=== PATIENT | female | born 2000 | race Hispanic/Latino ===

== ENCOUNTER 2021-11-15 16:49 | Emergency (ER) | payer OTHER ==
[~2021-11-15] VITALS: Ht 149.9 cm; Wt 52.7 kg
[~2021-11-15 16:49] MED LIST: NO HOME MEDS; TAMIFLU12 MG/ML OR; TRIAMIN OR; ZOFRAN ODT4 MG OR
[2021-11-15 17:59] LABS: HEMATOCRIT 42.9 % (37.0-47.0); HEMOGLOBIN 13.6 g/dl (12.0-16.0); IMMATURE GRANULOCYTES 0.2 % (0.0-5.0); MEAN CORPUSCULAR HGB CONC 31.7 g/dL CAL (32.0-36.0); NEUT# 12.14 thou/uL (2.00-7.15); RED BLOOD COUNT 5.23 mill/uL (4.20-5.60); RED CELL DISTRI WIDTH 15.2 % (11.5-15.5)
[2021-11-15 18:13] LABS: ALBUMIN 4.5 g/dL (3.2-5.0); ANION GAP 16 (6-22 (CALC)); BUN 11 mg/dL (7-17); BUN/CREATININE RATIO 18 (12-20 (CALC)); CARBON DIOXIDE 26 mmol/l (22-30); CHLORIDE 102 mmol/l (95-108); CREATININE 0.6 mg/dL (0.5-1.0); GFR > 60 ML/MIN (>=60 (CALC)); GFR FOR AFR.AMER. > 60 ML/MIN (>=60 (CALC)); LIPASE 36 u/l (23-300); MAGNESIUM 1.7 mg/dL (1.6-2.3); POTASSIUM 3.9 mmol/l (3.5-5.1); SGOT/AST 20 u/l (14-36); SODIUM 139 mmol/l (137-146); TOTAL PROTEIN 8.1 g/dL (6.3-8.2)
[2021-11-15 18:14] LABS: ALKALINE PHOSPHATASE 85 u/l (38-126); BILIRUBIN, TOTAL 0.8 mg/dL (0.0-1.4)
[2021-11-15 18:31] LABS: BETA-HCG, QUANT(RESULT NUMBER) 160 mIU/mL
[2021-11-15 18:44] LABS: TSH, 3RD GENERATION 0.61 uIU/mL (0.47 - 4.68)
[2021-11-15 19:10] LABS: URINE BILIRUBIN - DIPSTICK NEGATIVE (NEGATIVE); URINE BLOOD DIPSTICK NEGATIVE (NEGATIVE); URINE COLOR YELLOW; URINE GLUCOSE - DIPSTICK NEGATIVE (NEGATIVE); URINE KETONE >=80 mg/dL (NEGATIVE); URINE LEUK ESTERASE NEGATIVE (NEGATIVE); URINE PROTEIN - DIPSTICK TRACE mg/dL (NEG-TRACE); URINE SPECIFIC GRAVITY >=1.030; URINE UROBILINOGEN - DIPSTICK 0.2 E.U./dL (0.2)
[2021-11-15 19:12] LABS: URINE NITRITE - DIPSTICK NEGATIVE (Negative)
[2021-11-15] MEDS ORDERED: ZOFRAN4 MG/TAB PO (20:51)
[2021-11-15 21:10] VITALS: BP 100/60
== END 2021-11-15 21:15 | disposition home or self-care (01) | DRG 392 ==
LOC: ED 16:49
PROVIDERS: Emergency Medicine
DX: K52.9 Noninfective gastroenteritis and colitis, unspecified (principal); R79.89 Other specified abnormal findings of blood chemistry; Z20.822 Contact with and (suspected) exposure to COVID-19

== ENCOUNTER 2023-11-13 18:53 | Emergency (ER) | payer SELFPAY ==
[~2023-11-13] VITALS: Ht 149.9 cm; Wt 61.2 kg
[2023-11-13] VITALS (23 sets, daily range): BP systolic 82–147; BP diastolic 42–93
[~2023-11-13 18:53] MED LIST changes: +ZOFRAN4 MG/TAB PO
[2023-11-13] MEDS ORDERED: CHOLESTYRAMINE4 G1 PO (19:06)
[2023-11-13 19:48] LABS: BASO% 0.3 % (0-3); EOS% 0.7 % (0-8); HEMATOCRIT 42.7 % (37.0-47.0); HEMOGLOBIN 13.4 g/dl (12.0-16.0); IMMATURE GRANULOCYTES 0.3 % (0.0-5.0); LYMPH% 15.3 % (15-41); MEAN CELL VOLUME 81.5 fL CALC (80.0-100.0); MEAN CORPUSCULAR HGB 25.6 pG CALC (26.0-32.0); MEAN CORPUSCULAR HGB CONC 31.4 g/dL CAL (32.0-36.0); MONO% 5.7 % (2-13); NEUT# 9.5 thou/uL (2.00-7.15); NEUT% 77.7 % (42-76); RED BLOOD COUNT 5.24 mill/uL (4.20-5.60); RED CELL DISTRI WIDTH 14.1 % (11.5-15.5)
[2023-11-13 19:51] LABS: URINE BILIRUBIN - DIPSTICK Negative (NEGATIVE); URINE BLOOD DIPSTICK Trace-intact (NEGATIVE); URINE GLUCOSE - DIPSTICK Negative (NEGATIVE); URINE KETONE 80 mg/dL (NEGATIVE); URINE LEUK ESTERASE Trace (NEGATIVE); URINE NITRITE - DIPSTICK Negative (Negative); URINE PH 5.5 (4.5-8.0); URINE PROTEIN - DIPSTICK 100 mg/dL (NEG-TRACE); URINE SPECIFIC GRAVITY >=1.030; URINE UROBILINOGEN - DIPSTICK 0.2 E.U./dL (0.2)
[2023-11-13 19:52] LABS: ALBUMIN 5.2 g/dL (3.2-5.0); ALKALINE PHOSPHATASE 88 u/l (38-126); ANION GAP 20 (6-22 (CALC)); BILIRUBIN, TOTAL 0.6 mg/dL (0.02-1.3); BUN 8 mg/dL (7-17); BUN/CREATININE RATIO 15 (12-20 (CALC)); CARBON DIOXIDE 23 mmol/l (22-30); CHLORIDE 100 mmol/l (95-108); CREATININE 0.5 mg/dL (0.5-1.0); GFR FOR AFR.AMER. > 60 ML/MIN (>=60 (CALC)); GFR OTHER RACES > 60 ML/MIN (>=60 (CALC)); LIPASE 68 u/l (23-300); POTASSIUM 3.8 mmol/l (3.5-5.1); SODIUM 140 mmol/l (137-146); TOTAL PROTEIN 9.3 g/dL (6.3-8.2); URINE COLOR Yellow
[2023-11-13 19:53] LABS: SGOT/AST 57 u/l (14-36)
[2023-11-13 19:59] LABS: URINE SQUAMOUS EPITHELIAL CELL MANY EPI/hpf (0-FEW)
[2023-11-14] MEDS ORDERED: ZOFRAN4 MG/TAB PO (02:07)
[2023-11-14] MEDS ORDERED: DICYCLOMINE HCL20 MG PO (02:07)
[2023-11-14 02:12] VITALS: BP 88/50
[2023-11-14 02:15] VITALS: BP 94/55
[2023-11-14 02:33] VITALS: BP 94/55
== END 2023-11-14 02:37 | disposition home or self-care (01) | DRG 392 ==
LOC: ED 18:53
PROVIDERS: Internal Medicine
DX: R10.9 Unspecified abdominal pain (principal); R11.10 Vomiting, unspecified
CPT/HCPCS: Q9967